=== PATIENT | female | born 1940 | race Caucasian/White ===

== ENCOUNTER 2021-09-19 22:13 | Inpatient (IN) | payer MEDICARE ==
[~2021-09-19] VITALS: Ht 165.1 cm; Wt 53.0 kg
[~2021-09-19 22:13] MED LIST: Aspirin EC81 MG PO; FISH OIL + D31 EACH PO; Hydrochlorothia25 MG PO; LISI20 PO; MULTI VITAMIN1 EACH PO; NAPR500 PO; POTA10T PO
[2021-09-19 23:09] LABS: BASOPHILS ABSOLUTE AUTO 0.03 K/mm3 (0.00-0.23); BASOPHILS PERCENT AUTO 0 % (0-2); EOSINOPHILS ABSOLUTE AUTO 0.03 K/mm3 (0.00-0.68); EOSINOPHILS PERCENT AUTO 0 % (0-6); Hematocrit 32.6 % (33.0-51.0); Hemoglobin 11.3 g/dL (11.5-16.0); IMMATURE GRAN ABSOLUTE AUTO 0.02 K/mm3 (0.00-0.10); IMMATURE GRAN PERCENT AUTO 0 % (0-1); LYMPHOCYTES ABSOLUTE AUTO 0.54 K/mm3 (0.84-5.20); LYMPHOCYTES PERCENT AUTO 8 % (21-46); MONOCYTES ABSOLUTE AUTO 0.67 K/mm3 (0.16-1.47); MONOCYTES PERCENT AUTO 10 % (4-13); Mean Corpuscular HGB 36.3 pg (26.0-34.0); Mean Corpuscular HGB Conc 34.7 g/dL (31.5-36.5); Mean Corpuscular Volume 105 fL (80-100); Mean Platelet Volume 11.5 fL (9.1-12.4); NEUTROPHILS ABSOLUTE AUTO 5.61 K/mm3 (1.96-9.15); NEUTROPHILS PERCENT AUTO 81 % (41-73); Platelet Count 159 K/mm3 (150-400); RDW Coefficient Variation 11.6 % (11.7-14.2); RDW Standard Deviation 44.3 fL (35.1-46.3); Red Blood Cell Count 3.11 M/mm3 (3.80-5.20)
[2021-09-19 23:22] LABS: Alanine Aminotransfer (ALT/SGP 43 U/L (12-78); Albumin, Blood 3.3 g/dL (3.4-5.0); Albumin/Globulin Ratio 0.9 (0.8-1.8); Alk Phos 54 U/L (50-136); Anion Gap 19 mmol/L (6-16); Aspartate Aminotrans (AST/SGOT 50 U/L (12-37); Bilirubin, Total 1.2 mg/dL (0.1-1.0); Blood Urea Nitrogen 24 mg/dL (8-24); Bun/Creatinine Ratio 32.7 (12.0-20.0); CO2, Blood 24 mmol/L (21-32); Calcium, Blood 9.6 mg/dL (8.5-10.1); Chloride, Blood 92 mmol/L (98-108); Creatinine, Blood 0.73 mg/dL (0.40-1.00); Globulin, Blood 3.8 g/dL (2.2-4.0); Glomerular Filtration Rate >60 (60-); Glucose, Blood 145 mg/dL (70-99); Potassium, Blood 2.7 mmol/L (3.5-5.5); Sodium, Blood 135 mmol/L (136-145); Total Protein, Blood 7.1 g/dL (6.4-8.2)
[2021-09-20 01:57] LABS: Magnesium, Blood 1.4 mg/dL (1.6-2.4)
[2021-09-20 02:28] LABS: Source, Urine Clean Catch
[2021-09-20 02:36] LABS: Appearance, Urine Hazy (Clear); Bilirubin, Urine Neg (Neg); Blood, Urine 5+ (Neg); Color, Urine Yellow (P-Yellow); Glucose Qualitative, Urine Neg (Neg); Ketones, Urine 4+ (Neg); Leukocyte Esterase, Urine 3+ (Neg); Nitrite, Urine Neg (Neg); Protein, Urine 2+ (Neg); Specific Gravity, Urine 1.015 (1.003-1.022); Urobilinogen, Urine 2+ (Normal)
[2021-09-20 02:46] LABS: Bacteria Many /hpf; Red Blood Cells, Urine 0-2 /hpf (0-2); Squamous Epithelial Cells Few /hpf (Few)
--- NOTE | 2021-09-20 04:49 | NUR ---
SUMMARY PT ARRIVED FROM ER IN NO DISTRESS. PT PLESANTLY CONFUSED AND FORGETFUL. PT DID PULL IV OUT AND TRY TO GET OUT OF BED. PT REORIENTS EASILY BUT AGAIN IS VERY FORGETFUL. PT CRIS PAIN OR N/V. PT CURRENTLY AWAKE AND IN NO DISTRESS. CALL LIGHT AND BED ALARM ON.
[2021-09-20 11:24] LABS: Anion Gap 11 mmol/L (6-16); Blood Urea Nitrogen 15 mg/dL (8-24); Bun/Creatinine Ratio 30.5 (12.0-20.0); CO2, Blood 24 mmol/L (21-32); Calcium, Blood 8.2 mg/dL (8.5-10.1); Chloride, Blood 102 mmol/L (98-108); Creatinine, Blood 0.49 mg/dL (0.40-1.00); Glomerular Filtration Rate >60 (60-); Glucose, Blood 148 mg/dL (70-99); Potassium, Blood 3.1 mmol/L (3.5-5.5); Sodium, Blood 137 mmol/L (136-145)
--- NOTE | 2021-09-20 17:37 | NUR ---
SHIFT SUMMARY: PT IS VERY PLEASANT. A&O TO SELF, PERSON, AND FAMILY. T/O THE SHIFT SHE BECAME SLIGHTLY CONFUSED ON VARIOUS OCCASSIONS AND WOULD REMOVE TELE PADS AND ATTEMPTED TO WALK AROUND THE ROOM UNASSISTED. TELE WAS DISCONTINUED PER PROVIDER. AMBULATED WELL TO THE BATHROOM AND CHAIR WITH ASSISTANCE. MORNING BP WAS SLIGHTLY LOW AND BP MEDICATION WAS HELD. PT CONTINUES TO REPORT THAT THE IV POLE IS TALKING TO HER. REORIENTATION NECESSARY T/O SHIFT PT EXPRESSED CONFUSION REGARDING HER LOCATION. POOR APPETITE. ONLY TAKING SMALL BITES OF MEALS. GIVEN GATORADE TO SIP ON.
--- NOTE | 2021-09-21 04:30 | NUR ---
SHIFT SUMMARY PT CONFUSED AND NEEDING FREQUENT REORIENTATION. PT HAD A FALL AT THE START OF SHIFT. HEAD CT NEGATIVE. PT HAVING DIFFICULTY URINATING. BLADDER SCANNING PRN AND STRAIGHT CATH X1. BED ALARM IN PLACE AND MONITORS ON.
[2021-09-21 06:02] LABS: Anion Gap 13 mmol/L (6-16); Blood Urea Nitrogen 9 mg/dL (8-24); Bun/Creatinine Ratio 19.1 (12.0-20.0); CO2, Blood 23 mmol/L (21-32); Calcium, Blood 8.2 mg/dL (8.5-10.1); Chloride, Blood 98 mmol/L (98-108); Creatinine, Blood 0.47 mg/dL (0.40-1.00); Glomerular Filtration Rate >60 (60-); Glucose, Blood 100 mg/dL (70-99); Magnesium, Blood 1.4 mg/dL (1.6-2.4); Potassium, Blood 2.5 mmol/L (3.5-5.5); Sodium, Blood 134 mmol/L (136-145)
--- NOTE | 2021-09-21 18:02 | NUR ---
SHIFT SUMMARY: SLEEPY, BUT ALERT AND AROUSABLE. ORIENTED TO SELF AND FAMILY. WEAK GAIT REQUIRING 1-2 PERSON ASSIST W/ GB. LOW PO INTAKE UNTIL DINNER. ENC FLUIDS. VOIDING. NO BM REPORTED TODAY. PRN APAP GIVEN PER EMR C/O NECK PAIN. SISTER @ BEDSIDE MUCH OF DAY; SHE HAS OFFERED TO COME IN TO SIT WITH PT IF PT BECOMES DISORIENTED OR AGITATED. DAUGHTER WORKING ON PERMANENT PLACEMENT. REPORT GIVEN TO ONCOMING NOC SHIFT NURSE.
[2021-09-22 05:13] LABS: Anion Gap 6 mmol/L (6-16); Blood Urea Nitrogen 9 mg/dL (8-24); Bun/Creatinine Ratio 15.3 (12.0-20.0); CO2, Blood 30 mmol/L (21-32); Calcium, Blood 8.5 mg/dL (8.5-10.1); Chloride, Blood 102 mmol/L (98-108); Creatinine, Blood 0.59 mg/dL (0.40-1.00); Glomerular Filtration Rate >60 (60-); Glucose, Blood 98 mg/dL (70-99); Potassium, Blood 2.5 mmol/L (3.5-5.5); Sodium, Blood 138 mmol/L (136-145)
--- NOTE | 2021-09-22 06:44 | NUR ---
STOCKROOM KEEPER SUMMARY PT WITH SOME BASELINE CONFUSION DUE TO DEMENTIA BUT HAS BEEN CALM AND COOPERATIVE WITH CARE TONIGHT. BED/CHAIR ALARM ON FOR SAFETY, PT HAS BEEN EASILY REORIENTED TONIGHT. PT HAD NOT VOIDED MOST OF THE NIGHT, BLADDER SCANNED THIS AM FOR 481 ML. HOWEVER, SHORTLY AFTER BLADDER SCAN PT VOIDED JUST OVER 500 ML. RESTING IN BED AT THIS TIME. VSS, WILL CONTINUE TO MONITOR.
--- NOTE | 2021-09-22 19:18 | NUR ---
SHIFT SUMMARY PT EVALUATED BY [employer]IDENC[employer] DIRECTOR, HAS BEEN PLEASANT AND COOPERATIVE T/O THE SHIFT TODAY, REPORTED SOME MILD NECK DISCOMFORT AFTER SLEEPING FOR A FEW HOURS TODAY. CONFUSED BUT REORIENTS EASILY, PLAN TO DC TOMORROW. REPORT GIVEN TO JASON BRAND.
--- NOTE | 2021-09-23 05:52 | NUR ---
CASKET INSPECTOR SUMMARY PATIENT A&O X2 BUT MOSTLY COOPERATIVE. VSS. PATIENT SLEPT THROUGH MOST OF THE NIGHT AFTER BEING MEDICATED WITH GABAPENTIN. PATIENT DENIES PAIN, N/V, DIZINESS, SOB. PATIENT HAS NOT HAD A BOWEL MOVEMENT SINCE 09-19-21, BUT DENIES ABDOMINAL PAIN. PATIENT HAS NOT EATEN THIS SHIFT. ORAL INTAKE ENCOURAGED. NO OTHER ACUTE CHANGES.
[2021-09-23 05:59] LABS: Anion Gap 8 mmol/L (6-16); Blood Urea Nitrogen 6 mg/dL (8-24); Bun/Creatinine Ratio 10.9 (12.0-20.0); CO2, Blood 29 mmol/L (21-32); Calcium, Blood 8.6 mg/dL (8.5-10.1); Chloride, Blood 103 mmol/L (98-108); Creatinine, Blood 0.55 mg/dL (0.40-1.00); Glomerular Filtration Rate >60 (60-); Glucose, Blood 89 mg/dL (70-99); Magnesium, Blood 1.5 mg/dL (1.6-2.4); Sodium, Blood 140 mmol/L (136-145)
--- NOTE | 2021-09-23 12:50 | NUR ---
DISCHARGE SUMMARY PT DISCHARGED TO [facility]. PT BELONGINGS PLACED IN BAGS AND CARRIED OUT BY PT. IV DISCONTINUED. PT LEFT ROOM W/ [facility] STAFF ESCORTING HER VIA WHEELCHAIR. PT TO BE TRANSPORTED FROM HOSPITAL BY [facility] STAFF. NO COMPLICATIONS NOTED AT TIME OF DISCHARGE.
--- NOTE | 2021-09-23 13:53 | NUR ---
DISCHARGE SUMMARY REPORT GIVEN TO NURSE AT [facility], ASSISTED STUDENT RN WITH PREPARING FOR DISCHARGE. PATIENT ESCORTED OUT BY [place] STAFF VIA WC.
== END 2021-09-23 13:00 | DRG 641 ==
LOC: ER 22:13 → SURS 22:14
PROVIDERS: Internal Medicine; Student in an Organized Health Care Education/Training Program; ADMIT Internal Medicine
DX: E87.6 Hypokalemia (principal); F03.91 Unspecified dementia, unspecified severity, with behavioral disturbance; E44.0 Moderate protein-calorie malnutrition; Z68.1 Body mass index [BMI] 19.9 or less, adult; F05 Delirium due to known physiological condition; R62.7 Adult failure to thrive; E87.2 Acidosis; F03.90 Unspecified dementia, unspecified severity, without behavioral disturbance, psychotic disturbance, mood disturbance, and anxiety; E86.0 Dehydration; R45.1 Restlessness and agitation; E83.42 Hypomagnesemia; M19.90 Unspecified osteoarthritis, unspecified site; R82.81 Pyuria; Z66 Do not resuscitate; D53.9 Nutritional anemia, unspecified; W18.30XA Fall on same level, unspecified, initial encounter; I10 Essential (primary) hypertension; Z87.891 Personal history of nicotine dependence; Z86.73 Personal history of transient ischemic attack (TIA), and cerebral infarction without residual deficits; Z90.710 Acquired absence of both cervix and uterus; Z90.721 Acquired absence of ovaries, unilateral; Z90.49 Acquired absence of other specified parts of digestive tract; Z98.890 Other specified postprocedural states; Z79.82 Long term (current) use of aspirin; Z79.899 Other long term (current) drug therapy
CPT/HCPCS: 36415; 51701; 70450; 80048; 80053; 81001; 82390; 82607; 82947; 83735; 84436; 84443; 85025; 87077; 87086; 87186; 93005; 93010; 96365; 96372; 97116; 97161; 97530; 99285-25; A9270; G0378; J1650; J3475; J3480; J7030